=== PATIENT | female | born 1990 | race Caucasian/White ===

== ENCOUNTER 2019-02-14 14:32 | Emergency (ER) | payer MEDICAID ==
[~2019-02-14] VITALS: Ht 162.6 cm; Wt 52.2 kg
[2019-02-14 14:42] VITALS: BP 105/77
== END 2019-02-14 20:51 | disposition left against medical advice (07) ==
LOC: ER 14:32
DX: R51 Headache (principal); Z53.21 Procedure and treatment not carried out due to patient leaving prior to being seen by health care provider